=== PATIENT | male | born 1955 | race Caucasian/White ===

== ENCOUNTER → 2024-06-15 13:34 | Outpatient (BNVA) | payer MEDICARE, SELFPAY | PROVIDERS: PCP Internal Medicine; Visit Provider Physician Assistant | DX: M54.9 Dorsalgia, unspecified (principal) | CPT/HCPCS: 99202 ==

== ENCOUNTER 2024-06-21 10:18 | Outpatient (REF) | payer MEDICARE, SELFPAY ==
--- NOTE | ~2024-06-21 | XR_ITS ---
EXAMINATION: XR THORACIC SPINE CLINICAL INFORMATION: Dorsalgia. COMPARISON: None available. TECHNIQUE: AP, lateral, and lateral flexion views of the thoracic spine. FINDINGS: ACDF fusion hardware is noted in the lower cervical spine. There is mild left convex scoliotic curvature in the upper thoracic spine centered at T3-T4. There is more minimal curvature in the remainder of the thoracic spine. Assessment of the upper thoracic spine is somewhat limited by the adjacent total hip prosthesis on the lateral view. There is mild multilevel degenerative disc disease throughout the thoracic spine characterized by endplate osteophytes and loss of intervertebral disc height. Vertebral body heights are normal. No appreciable fractures. No spondylolisthesis. Alignment does not appear to be significantly changed between neutral and flexion views. No acute soft tissue findings. XR/XR thoracic spine 3V IMPRESSION: Mild multilevel degenerative disc disease in the thoracic spine. No acute osseous findings. Electronically signed by: Amol Chaudhary MD 07/12/2024 07:50 PM EDT
== END 2024-06-21 10:19 | disposition home or self-care (01) ==
LOC: HO.XRAY 10:18
PROVIDERS: PCP Internal Medicine; Visit Provider Physician Assistant
DX: M54.9 Dorsalgia, unspecified (principal)
CPT/HCPCS: 72072

== ENCOUNTER 2024-07-21 07:22 | Outpatient (REF) | payer MEDICARE, SELFPAY ==
--- NOTE | ~2024-07-21 | CT_ITS ---
EXAMINATION: CT THORACIC SPINE WITHOUT CONTRAST CLINICAL INFORMATION: Pain. COMPARISON: None available. TECHNIQUE: Contiguous axial images through the thoracic spine using 2 mm collimation with bone and soft tissue algorithm. Sagittal and coronal reformatted images acquired. This CT examination was performed using dose optimization techniques as appropriate, variously including the following: *Automated exposure control *Adjustment of mA and/or kV according to patient size (this includes techniques or standardized protocols for targeted exams where dose is matched to indication/reason for exam; i.e. extremities or head) *Use of iterative reconstruction technique DLP: 715 mGy-cm FINDINGS: Submitted for interpretation on September 10, 2024. S-shaped curvature of the thoracic spine with the levoconvex curvature apex at T3-4. Multilevel marginal osteophyte formation and decreased intervertebral disc height from T3 to T6 and T10-T12. Multilevel Schmorl nodes at the endplates of T9, T10 and T11. The alignment is normal. No acute cortical disruption. No lytic or blastic lesions. No prevertebral compartment hematoma mass or fluid collection. Status post ACDF in the lower cervical spine which appears to the right lateral aspect of C7. There is a 2 cm low density nodule extending from the inferior margin of the thyroid isthmus into the anterior superior mediastinum. Calcified plaques in the coronary arteries, mostly the LAD. The thoracic aorta demonstrates normal diameter. CT/CT thoracic spine wo IV con IMPRESSION: Multilevel spondylosis with levoconvex scoliosis apex at T3-4 without acute fracture or gross listhesis. 2 cm cystic nodule, thyroid isthmus Fleischner guidelines were followed. Electronically signed by: Danis Boo MD 09/10/2024 09:28 AM [facility]
== END 2024-07-21 07:23 | disposition home or self-care (01) ==
LOC: HO.CT 07:22
PROVIDERS: PCP Internal Medicine; Visit Provider Physician Assistant
DX: M54.9 Dorsalgia, unspecified (principal)
CPT/HCPCS: 72128

== ENCOUNTER → 2024-07-21 07:24 | Outpatient (BNV) | payer MEDICARE, SELFPAY | PROVIDERS: PCP Internal Medicine; Visit Provider Radiology Diagnostic Radiology | DX: M54.9 Dorsalgia, unspecified (principal) | CPT/HCPCS: 72128 ==

== ENCOUNTER 2024-09-06 10:49 | Outpatient (AMB) | payer MEDICARE, SELFPAY ==
--- NOTE | 2024-09-06 11:11 | A.SPINEOV_ITS ---
Intake Visit Reasons: CT follow up Intake Note: Mr. Joaquin is here today to F/u on the results of his CT scan. 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 Joaquin comes in today for a follow-up visit after having his thoracic CT scan completed. Unfortunately he is almost 2 months out from his thoracic CT scan his images still have not been read by Radiology. I interpreted them to the best of my ability during this visit, but I am not a radiologist. I explained this to the patient when reviewing his films with him and reassured him that I would reach out to our radiology department to ensure that his CT scan is read promptly. That being said I do not see any gross abnormalities that would cause reason for concern at this time. He does have some anterior osteophyte bridging in quite a bit of arthritis in his thoracic spine. 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 He may follow up with us for his cervical spine complaints in the future if they continue to worsen at all. Right now it seems they are stable and he is not as concerned about them as he was about his mid thoracic back pain. Benja Aguilera MD,PhD [facility] Coding Level of Care Code Est Pt Level 2 (57398) Diagnoses Back pain M54.9
== END 2024-09-06 11:50 | disposition home or self-care (01) ==
PROVIDERS: PCP Internal Medicine; Visit Provider Physician Assistant
DX: M54.9 Dorsalgia, unspecified (principal)
CPT/HCPCS: 99212

== ENCOUNTER → 2024-09-06 10:49 | Outpatient (BNVA) | payer MEDICARE, SELFPAY | PROVIDERS: PCP Internal Medicine; Visit Provider Physician Assistant | DX: M54.9 Dorsalgia, unspecified (principal) | CPT/HCPCS: 99212 ==